=== PATIENT | male | born 1990 | race Caucasian/White ===

== ENCOUNTER → 2018-05-26 | Outpatient (CLI) | payer OTHER ==
[~2018-05-26] MED LIST: BUPR150ER PO; HYDR1TAB94 PO
[2018-05-26 14:18] LABS: Microalb/Creat Ratio UR, Rand 8.893 mg/g (0.000-30.000); Microalbumin, Random Urine 21.7 mg/L (0.000-20.000)
== END | disposition home or self-care (01) ==
LOC: LAB EV 09:25 → LAB SHORT 09:25
PROVIDERS: Physician Assistant
DX: I10 Essential (primary) hypertension (principal)
CPT/HCPCS: 82043; 82570